=== PATIENT | female | born 1970 | race Hispanic/Latino ===

== ENCOUNTER 2020-08-22 09:59 | Emergency (ER) | payer BC, OTHER ==
[~2020-08-22] VITALS: Ht 167.6 cm; Wt 142.9 kg
[2020-08-22 10:02] VITALS: BP 151/81
[2020-08-22] MEDS ORDERED: METH-812 PO (11:30)
[2020-08-22 13:05] VITALS: BP 101/68
== END 2020-08-22 13:05 | disposition home or self-care (01) ==
LOC: EDH 09:59
DX: M54.12 Radiculopathy, cervical region (principal); I10 Essential (primary) hypertension; F41.9 Anxiety disorder, unspecified; E66.01 Morbid (severe) obesity due to excess calories; E11.9 Type 2 diabetes mellitus without complications; Z68.43 Body mass index [BMI] 50.0-59.9, adult
CPT/HCPCS: 82948; 99282